=== PATIENT | female | born 1980 | race Caucasian/White ===

== ENCOUNTER 2022-12-28 09:13 | Inpatient (IN) | payer BC, OTHER ==
[~2022-12-28] VITALS: Ht 170.2 cm; Wt 99.5 kg
[2022-12-28] MEDS ORDERED: LORazepam 2MG/ML-1ML VIAL IV ONE ×3 (10:15→19:30)
[2022-12-28] MEDS ORDERED: SODIUM CHLORIDE 0.9% 1,000 ML IVB ONE (10:15)
[2022-12-28] MEDS ORDERED: ONDANSETRON HCL 4 MG/2 ML VIAL IV ONE (10:15)
[2022-12-28 10:45] LABS: Basophils # (auto) 0.1 10 ^3/uL (0-0.2); Basophils % (auto) 0.8 % (0.0-2.0); Eosinophils # (auto) 0.1 10 ^3/uL (0-0.8); Eosinophils % (auto) 0.8 % (0.0-7.0); Hematocrit 44.1 % (36.0-46.0); Hemoglobin 15.7 g/dL (12.2-16.2); Lymphocytes # (auto) 1.7 10 ^3/uL (0.4-5.4); Lymphocytes % (auto) 18.2 % (10.0-50.0); Mean Corpuscular Hemoglobin 31.6 pg (28.0-32.0); Mean Corpuscular Hgb Conc. 35.6 g/dL (32.0-36.0); Mean Corpuscular Volume 88.6 fL (80.0-100.0); Monocytes # (auto) 0.5 10 ^3/uL (0-1.3); Monocytes % (auto) 5.6 % (0.0-12.0); Neutrophils # (auto) 7.1 10 ^3/uL (1.6-8.6); Neutrophils % (auto) 74.6 % (37.0-80.0); Nucleated Red Blood Cells % 0.3 %; Red Blood Cells 4.98 10^6/uL (4.0-5.20); Red Cell Distribution Width 13.2 % (11.8-14.3); White Blood Cell 9.5 10^3/uL (4.4-10.8)
[2022-12-28 10:52] LABS: Albumin 4.1 g/dL (3.4-5.0); Calcium 9.1 mg/dL (8.5-10.1); Potassium 3.8 mmol/L (3.5-5.1)
[2022-12-28 10:55] LABS: BUN/Creatinine Ratio 15.6; Bilirubin, Total 0.7 mg/dL (0.2-1.0); Total Protein 8.5 g/dL (6.4-8.2)
[2022-12-28 13:56] LABS: Urine Bacteria FEW /hpf (None Seen); Urine Blood Negative /uL (Negative); Urine Mucus FEW (None Seen); Urine Specific Gravity 1.014 (1.001-1.035); Urine WBC 1 /hpf (0 - 5)
[2022-12-28] MEDS ORDERED: CLON0.5T10 PO (14:28)
[2022-12-28] MEDS ORDERED: VORT10TA PO (14:28)
[2022-12-28] MEDS ORDERED: BUPR150T18 PO (14:28)
[2022-12-28] MEDS ORDERED: LEVO112T4 PO (14:28)
[2022-12-28] MEDS ORDERED: TRAZ50TA2 PO (14:28)
[2022-12-28] MEDS ORDERED: OXCA300T26 PO (14:28)
[2022-12-28] MEDS: SODIUM CHLORIDE 0.9% 1,000 ML IV SCH ×2 (14:30→21:32)
[2022-12-28] MEDS ORDERED: ACETAMINOPHEN 325 MG TAB PO PRN (14:30)
[2022-12-28] MEDS ORDERED: DOCUSATE SOD 100 MG CAP PO PRN (14:30)
[2022-12-28] MEDS ORDERED: SODIUM CHLORIDE 0.9% 1,000 ML IV ONE ×2 (14:45→15:00)
[2022-12-28] MEDS: ONDANSETRON HCL 4 MG/2 ML VIAL IV PRN (21:11)
[2022-12-28] MEDS: clonazePAM 0.5 MG TAB PO SCH (22:27)
[2022-12-28] MEDS: OXcarbazepine 300 MG TAB PO SCH (22:27)
[2022-12-28] MEDS: traZODone HCL 50 MG TAB PO SCH (22:28)
[2022-12-29 05:12] LABS: Basophils # (auto) 0.1 10 ^3/uL (0-0.2); Basophils % (auto) 0.6 % (0.0-2.0); Eosinophils # (auto) 0.2 10 ^3/uL (0-0.8); Eosinophils % (auto) 2.3 % (0.0-7.0); Hematocrit 39.3 % (36.0-46.0); Hemoglobin 13.8 g/dL (12.2-16.2); Lymphocytes # (auto) 2.5 10 ^3/uL (0.4-5.4); Lymphocytes % (auto) 31.3 % (10.0-50.0); Mean Corpuscular Hemoglobin 31.5 pg (28.0-32.0); Mean Corpuscular Volume 89.8 fL (80.0-100.0); Monocytes # (auto) 0.7 10 ^3/uL (0-1.3); Monocytes % (auto) 8.6 % (0.0-12.0); Neutrophils # (auto) 4.5 10 ^3/uL (1.6-8.6); Neutrophils % (auto) 57.2 % (37.0-80.0); Nucleated Red Blood Cells % 0.1 %; Red Blood Cells 4.38 10^6/uL (4.0-5.20); Red Cell Distribution Width 13.3 % (11.8-14.3); White Blood Cell 7.8 10^3/uL (4.4-10.8)
[2022-12-29 05:34] LABS: Albumin 3.4 g/dL (3.4-5.0); Calcium 7.8 mg/dL (8.5-10.1); Potassium 3.6 mmol/L (3.5-5.1)
[2022-12-29 05:40] LABS: BUN/Creatinine Ratio 22.2; Bilirubin, Total 0.7 mg/dL (0.2-1.0); Total Protein 7.1 g/dL (6.4-8.2)
[2022-12-29] MEDS: BUPROPION HCL 150 MG PO SCH (07:00)
[2022-12-29] MEDS: ONDANSETRON HCL 4 MG/2 ML VIAL IV PRN ×2 (09:13→21:37)
[2022-12-29] MEDS: VORTIOXETINE HYDROBROMIDE 10 MG PO SCH (10:00)
[2022-12-29] MEDS: PANTOPRAZOLE 40 MG/10 ML VIAL INJ IV SCH (10:21)
[2022-12-29] MEDS: HYDROcodone-ACET 5/325MG TAB PO PRN ×2 (10:21→21:38)
[2022-12-29] MEDS: OXcarbazepine 300 MG TAB PO SCH ×2 (10:21→21:39)
[2022-12-29] MEDS: LEVOTHYROXINE SODIUM 112 MCG TAB PO SCH (10:22)
[2022-12-29] MEDS: clonazePAM 0.5 MG TAB PO SCH ×2 (10:22→21:39)
[2022-12-29] MEDS: SODIUM CHLORIDE 0.9% 1,000 ML IV SCH ×2 (10:56→19:04)
[2022-12-29] MEDS: LORazepam 2MG/ML-1ML VIAL IV PRN ×2 (11:57→21:37)
[2022-12-29] MEDS: traZODone HCL 50 MG TAB PO SCH (21:38)
[2022-12-29 22:00] VITALS: BP 124/73
[2022-12-30] MEDS ORDERED: ROPI0.254 PO (02:55)
[2022-12-30] MEDS ORDERED: ONDA-155 (02:56)
[2022-12-30 05:00] VITALS: BP 125/69
[2022-12-30] MEDS: SODIUM CHLORIDE 0.9% 1,000 ML IV SCH (05:46)
[2022-12-30] MEDS ORDERED: hydrALAZINE HCL 20 MG/ML VL IV PRN (06:00)
[2022-12-30] MEDS: BUPROPION HCL 150 MG PO SCH (07:00)
[2022-12-30 09:00] VITALS: BP 140/71
[2022-12-30] MEDS: LEVOTHYROXINE SODIUM 112 MCG TAB PO SCH (09:27)
[2022-12-30] MEDS: PANTOPRAZOLE 40 MG/10 ML VIAL INJ IV SCH (09:27)
[2022-12-30] MEDS: clonazePAM 0.5 MG TAB PO SCH (09:27)
[2022-12-30] MEDS: OXcarbazepine 300 MG TAB PO SCH (09:27)
[2022-12-30] MEDS: ONDANSETRON HCL 4 MG/2 ML VIAL IV PRN (09:28)
[2022-12-30] MEDS: TRINTELLIX 10 MG PO SCH ×2 (10:00→12:38)
[2022-12-30] MEDS: VORTIOXETINE HYDROBROMIDE 10 MG PO SCH (10:00)
[2022-12-30] MEDS ORDERED: VORT1TAB3 PO (10:47)
[2022-12-30] MEDS ORDERED: TRINTELLIX 20 MG PO SCH (12:15)
[2022-12-30] MEDS ORDERED: ONDA-144 PO (12:20)
[2022-12-30] MEDS ORDERED: HYDR-4902 PO (12:20)
[2022-12-30 13:00] VITALS: BP 124/62
[2022-12-30 13:05] VITALS: BP 124/62
[2022-12-30] MEDS ORDERED: OXcarbazepine 300 MG TAB PO SCH ×2 (14:00→20:00)
[2022-12-30] MEDS ORDERED: clonazePAM 0.5 MG TAB PO SCH (17:00)
[2022-12-30] MEDS ORDERED: traZODone HCL 50 MG TAB PO SCH (20:00)
[2022-12-31] MEDS ORDERED: LEVOTHYROXINE SODIUM 112 MCG TAB PO SCH (07:00)
[2022-12-31] MEDS ORDERED: OXcarbazepine 300 MG TAB PO SCH (08:00)
[2022-12-31] MEDS ORDERED: clonazePAM 0.5 MG TAB PO SCH (08:00)
[2022-12-31] MEDS ORDERED: TRINTELLIX 20 MG PO SCH (10:00)
== END 2022-12-30 15:30 | disposition home or self-care (01) | DRG 440 ==
LOC: ER 09:16 → OVERFLOW 14:22 → WEST WING 22:32 → OVERFLOW 23:59 → CENTRAL 12-29 18:06
PROVIDERS: ADMIT Nurse Practitioner Family; ATTEND Nurse Practitioner Family
DX: K85.90 Acute pancreatitis without necrosis or infection, unspecified (principal); E03.9 Hypothyroidism, unspecified; F32.A Depression, unspecified; Z20.822 Contact with and (suspected) exposure to COVID-19; F41.0 Panic disorder [episodic paroxysmal anxiety]; K82.8 Other specified diseases of gallbladder; F43.10 Post-traumatic stress disorder, unspecified; Z88.0 Allergy status to penicillin; Z88.8 Allergy status to other drugs, medicaments and biological substances
CPT/HCPCS: 36415; 74176; 76705; 78226; 80053; 81001; 82150; 83690; 85025; 87426; C9113; G0378; J2405

== ENCOUNTER → 2023-01-04 | Outpatient (CLI) | payer BC ==
[~2023-01-04] MED LIST: BUPR150T18 PO; CLON0.5T10 PO; HYDR-4902 PO; LEVO112T4 PO; ONDA-144 PO; ONDA-155; OXCA300T26 PO; ROPI0.254 PO; TRAZ50TA2 PO; VORT10TA PO; VORT1TAB3 PO
[2023-01-04 09:16] LABS: Basophils # (auto) 0.1 10 ^3/uL (0-0.2); Eosinophils # (auto) 0.2 10 ^3/uL (0-0.8); Eosinophils % (auto) 4.6 % (0.0-7.0); Hematocrit 41.5 % (36.0-46.0); Hemoglobin 14.6 g/dL (12.2-16.2); Lymphocytes # (auto) 1.6 10 ^3/uL (0.4-5.4); Lymphocytes % (auto) 31.4 % (10.0-50.0); Mean Corpuscular Hemoglobin 31.8 pg (28.0-32.0); Mean Corpuscular Hgb Conc. 35.1 g/dL (32.0-36.0); Mean Corpuscular Volume 90.6 fL (80.0-100.0); Monocytes # (auto) 0.4 10 ^3/uL (0-1.3); Neutrophils # (auto) 2.8 10 ^3/uL (1.6-8.6); Red Blood Cells 4.58 10^6/uL (4.0-5.20); Red Cell Distribution Width 13.2 % (11.8-14.3)
[2023-01-04 10:28] LABS: Alanine Aminotransferase 77 U/L (13-56); Albumin 4.1 g/dL (3.4-5.0); Alkaline Phosphatase 62 U/L (45-117); Anion Gap 6 (5-15); Aspartate Aminotransferase 65 U/L (15-37); BUN/Creatinine Ratio 18.4; Bilirubin, Total 0.3 mg/dL (0.2-1.0); Blood Urea Nitrogen 14 mg/dL (7-18); Calcium 9.2 mg/dL (8.5-10.1); Carbon Dioxide 26 mmol/L (21-32); Chloride 104 mmol/L (98-107); Cholesterol 232 mg/dL (< 200); GFR African American 107 mL/min; GFR Non-African American 88 mL/min; Glucose 234 mg/dL (74-106); HDL Cholesterol 31 mg/dL (40-59); Potassium 4.5 mmol/L (3.5-5.1); Sodium 136 mmol/L (136-145); Total Protein 7.8 g/dL (6.4-8.2); Triglycerides 461 mg/dL (< 150)
[2023-01-04 10:56] LABS: Urine Bacteria FEW /hpf (None Seen); Urine Blood Negative /uL (Negative); Urine Specific Gravity 1.023 (1.001-1.035); Urine WBC 1 /hpf (0 - 5)
== END | disposition home or self-care (01) ==
LOC: LAB 08:51
PROVIDERS: ATTEND Nurse Practitioner
DX: I10 Essential (primary) hypertension (principal); E78.5 Hyperlipidemia, unspecified; R73.9 Hyperglycemia, unspecified; E03.9 Hypothyroidism, unspecified
CPT/HCPCS: 36415; 80053; 80061; 81001; 83036; 84443; 85025

== ENCOUNTER 2024-07-31 11:28 | Day surgery (SDC) | payer BC ==
[2024-07-29 12:34] LABS: Basophils # (auto) 0 10 ^3/uL (0-0.2); Basophils % (auto) 0.4 % (0.0-2.0); Eosinophils # (auto) 0.1 10 ^3/uL (0-0.8); Eosinophils % (auto) 0.9 % (0.0-7.0); Hematocrit 43.5 % (36.0-46.0); Hemoglobin 15.1 g/dL (12.2-16.2); Lymphocytes # (auto) 1.6 10 ^3/uL (0.4-5.4); Lymphocytes % (auto) 21.7 % (10.0-50.0); Mean Corpuscular Hemoglobin 30.7 pg (28.0-32.0); Mean Corpuscular Hgb Conc. 34.7 g/dL (32.0-36.0); Mean Corpuscular Volume 88.4 fL (80.0-100.0); Monocytes # (auto) 0.6 10 ^3/uL (0-1.3); Monocytes % (auto) 7.7 % (0.0-12.0); Neutrophils # (auto) 5.3 10 ^3/uL (1.6-8.6); Neutrophils % (auto) 69.3 % (37.0-80.0); Platelet Count (auto) 229 10^3/uL (140-450); Red Blood Cells 4.92 10^6/uL (4.0-5.20); Red Cell Distribution Width 13.8 % (11.8-14.3); White Blood Cell 7.6 10^3/uL (4.4-10.8)
[2024-07-29 12:55] LABS: INR 1.06 (0.9-1.15); Partial Thromboplastin Time 30.7 SEC (24.5-34.5); Prothrombin Time 11.2 sec (9.3-11.8)
[2024-07-29 13:24] LABS: Alanine Aminotransferase 19 U/L (7-40); Alkaline Phosphatase 53 U/L (46-116); Anion Gap 5 (5-15); Aspartate Aminotransferase 16 U/L (13-40); BUN/Creatinine Ratio 18.3 (10.0-20.0); Blood Urea Nitrogen 15 mg/dL (9-23); Calcium 9.3 mg/dL (8.7-10.4); Carbon Dioxide 25 mmol/L (20-30); Chloride 106 mmol/L (98-107); Glucose 143 mg/dL (74-106); Potassium 4.4 mmol/L (3.5-5.1); Sodium 136 mmol/L (136-145)
[2024-07-29 13:25] LABS: Albumin 4.5 g/dL (3.2-4.8); Bilirubin, Total 0.4 mg/dL (0.2-1.0); Total Protein 7.4 g/dL (5.7-8.2)
[~2024-07-31] VITALS: Ht 170.2 cm; Wt 77.1 kg
[~2024-07-31 11:28] MED LIST changes: +ASPI-543 PO; -BUPR150T18 PO; -CLON0.5T10 PO; +CLON0.5T4 PO; +ESCI5TAB PO; +LISI10TA34 PO; +METF-370 PO; -OXCA300T26 PO; +OXCA300T4 PO; -ROPI0.254 PO; +ROPI5TAB20 PO; +SEMA2INJ3 SC; +TRAZ-227 PO; -TRAZ50TA2 PO; -VORT1TAB3 PO
[2024-07-31] MEDS ORDERED: SODIUM CHLORIDE LOCK 10 ML ONE (13:50)
[2024-07-31 13:54] VITALS: PULSE 90; RESP 17; O2SAT 98
[2024-07-31] MEDS: LIDOCAINE VISCOUS 2% 15ML UD ONE (13:58)
[2024-07-31] MEDS: fentaNYL CITRATE 100 MCG/2 ML VL ONE (14:00)
[2024-07-31] MEDS: diphenhdrAMINE HCL 50 MG/1 ML VL ONE (14:00)
[2024-07-31] MEDS: MIDAZOLAM HCL 5 MG/ML-1ML VIAL ONE (14:00)
[2024-07-31 14:18] VITALS: TEMP 97; O2SAT 100
[2024-07-31 14:55] VITALS: BP 118/70; PULSE 72; RESP 18; O2SAT 100
== END 2024-07-31 15:00 | disposition home or self-care (01) ==
LOC: GI 11:28
PROVIDERS: ATTEND Internal Medicine Gastroenterology
DX: R10.13 Epigastric pain (principal); K29.50 Unspecified chronic gastritis without bleeding; K21.00 Gastro-esophageal reflux disease with esophagitis, without bleeding; K44.9 Diaphragmatic hernia without obstruction or gangrene; K29.80 Duodenitis without bleeding; I10 Essential (primary) hypertension; E11.9 Type 2 diabetes mellitus without complications; F41.9 Anxiety disorder, unspecified; F32.A Depression, unspecified; E03.9 Hypothyroidism, unspecified; Z86.2 Personal history of diseases of the blood and blood-forming organs and certain disorders involving the immune mechanism; Z90.710 Acquired absence of both cervix and uterus; Z88.0 Allergy status to penicillin; Z88.8 Allergy status to other drugs, medicaments and biological substances; Z79.82 Long term (current) use of aspirin; Z80.0 Family history of malignant neoplasm of digestive organs; Z82.49 Family history of ischemic heart disease and other diseases of the circulatory system; Z79.890 Hormone replacement therapy; Z79.84 Long term (current) use of oral hypoglycemic drugs
CPT/HCPCS: 36415; 43239; 80053; 82962; 84702; 85025; 85610; 85730; 88305; 88312; 88342; J1200; J2250; J3010; J7030; 99152

== ENCOUNTER → 2024-11-23 | Outpatient (CLI) | payer BC ==
[2024-11-23 11:45] LABS: Basophils # (auto) 0.1 10 ^3/uL (0-0.2); Basophils % (auto) 0.7 % (0.0-2.0); Eosinophils # (auto) 0.1 10 ^3/uL (0-0.8); Eosinophils % (auto) 1.8 % (0.0-7.0); Hematocrit 44.1 % (36.0-46.0); Lymphocytes # (auto) 2.6 10 ^3/uL (0.4-5.4); Lymphocytes % (auto) 31.8 % (10.0-50.0); Mean Corpuscular Hemoglobin 30.3 pg (28.0-32.0); Mean Corpuscular Hgb Conc. 34.1 g/dL (32.0-36.0); Mean Corpuscular Volume 88.8 fL (80.0-100.0); Monocytes # (auto) 0.4 10 ^3/uL (0-1.3); Monocytes % (auto) 5.2 % (0.0-12.0); Neutrophils # (auto) 4.9 10 ^3/uL (1.6-8.6); Neutrophils % (auto) 60.5 % (37.0-80.0); Nucleated Red Blood Cells % 0.1 %; Platelet Count (auto) 258 10^3/uL (140-450); Red Blood Cells 4.96 10^6/uL (4.0-5.20); Red Cell Distribution Width 14.1 % (11.8-14.3); White Blood Cell 8.1 10^3/uL (4.4-10.8)
[2024-11-23 12:05] LABS: Alanine Aminotransferase 14 U/L (7-40); Albumin 4.5 g/dL (3.2-4.8); Alkaline Phosphatase 56 U/L (46-116); Anion Gap 6 (5-15); Calcium 9.7 mg/dL (8.7-10.4); Carbon Dioxide 26 mmol/L (20-31); Potassium 4.7 mmol/L (3.5-5.1); Sodium 139 mmol/L (136-145)
[2024-11-23 12:07] LABS: BUN/Creatinine Ratio 18.2 (10.0-20.0); Blood Urea Nitrogen 16 mg/dL (9-23)
[2024-11-23 12:08] LABS: Urine Bacteria FEW /hpf (None Seen); Urine Blood Negative /uL (Negative); Urine Clarity Turbid (Clear); Urine Color Light-Yellow (Yellow); Urine Hyaline Cast FEW /lpf (0 - 2); Urine Mucus FEW (None Seen); Urine Protein, UAD Negative (Negative); Urine Specific Gravity 1.019 (1.001-1.035); Urine Squamous Epithelial Cell MOD /hpf (<5); Urine Urobilinogen Normal (Negative); Urine WBC 1 /hpf (0 - 5); Urine pH 5.5 (5.0-9.0)
[2024-11-23 12:09] LABS: Bilirubin, Total 0.4 mg/dL (0.2-1.0); Cholesterol 181 mg/dL (< 200); HDL Cholesterol 44 mg/dL (40-59); Total Protein 7.5 g/dL (5.7-8.2)
[2024-11-23 12:12] LABS: Aspartate Aminotransferase 13 U/L (13-40); Chloride 107 mmol/L (98-107); Glucose 110 mg/dL (74-106); LDL Cholesterol 123 mg/dL (< 100); Triglycerides 157 mg/dL (< 150)
[2024-11-23 12:24] LABS: Creatinine, Urine 111.43 mg/dL (30.0-125.0)
[2024-11-23 12:26] LABS: Microalb/Creat Ratio, Urine < 3.0
[2024-11-23 12:32] LABS: Micro Albumin < 3.0 mg/L (<30.0)
== END | disposition home or self-care (01) ==
LOC: LAB 11:30
PROVIDERS: ATTEND Nurse Practitioner
DX: E11.9 Type 2 diabetes mellitus without complications (principal); E78.5 Hyperlipidemia, unspecified
CPT/HCPCS: 36415; 80053; 80061; 81001; 82043; 82570; 83036; 84443; 85025

== ENCOUNTER 2025-04-12 10:36 | Outpatient (CLI) | payer BC ==
[2025-04-12 11:23] LABS: Alkaline Phosphatase 48 U/L (46-116); Anion Gap 7 (5-15); BUN/Creatinine Ratio 17.1 (10.0-20.0); Blood Urea Nitrogen 13 mg/dL (9-23); Calcium 9.3 mg/dL (8.7-10.4); Carbon Dioxide 28 mmol/L (20-31); Chloride 101 mmol/L (98-107); Glucose 94 mg/dL (74-106); Potassium 4.3 mmol/L (3.5-5.1); Total Protein 6.8 g/dL (5.7-8.2)
[2025-04-12 11:24] LABS: Albumin 4.3 g/dL (3.2-4.8); Bilirubin, Total 0.3 mg/dL (0.2-1.0)
[2025-04-12 11:25] LABS: Alanine Aminotransferase < 9 U/L (7-40); Aspartate Aminotransferase 11 U/L (13-40); Sodium 136 mmol/L (136-145)
== END 2025-04-12 17:00 | disposition home or self-care (01) ==
LOC: LAB 10:36
PROVIDERS: ATTEND Nurse Practitioner
DX: E11.9 Type 2 diabetes mellitus without complications (principal)
CPT/HCPCS: 36415; 80053; 83036

== ENCOUNTER 2025-07-06 14:19 | Outpatient (CLI) | payer BC ==
[2025-07-06 15:09] LABS: Alanine Aminotransferase 11 U/L (7-40); Albumin 4.5 g/dL (3.2-4.8); Alkaline Phosphatase 53 U/L (46-116); Anion Gap 7 (5-15); BUN/Creatinine Ratio 10.4 (10.0-20.0); Bilirubin, Total 0.4 mg/dL (0.2-1.0); Calcium 9.1 mg/dL (8.7-10.4); Carbon Dioxide 27 mmol/L (20-31); Glucose 88 mg/dL (74-106); Potassium 4.2 mmol/L (3.5-5.1); Total Protein 7.4 g/dL (5.7-8.2)
[2025-07-06 15:10] LABS: Blood Urea Nitrogen 7 mg/dL (9-23); Chloride 94 mmol/L (98-107); Sodium 128 mmol/L (136-145)
== END 2025-07-06 17:00 | disposition home or self-care (01) ==
LOC: LAB 14:19
PROVIDERS: ATTEND Nurse Practitioner
DX: E11.9 Type 2 diabetes mellitus without complications (principal)
CPT/HCPCS: 36415; 80053; 83036